=== PATIENT | male | born 1935 | race Caucasian/White ===

== ENCOUNTER → 2017-04-19 | Outpatient (CLI) | payer MEDICARE, OTHER ==
--- NOTE | 2017-04-23 09:08 | MR ---
EXAMINATION TYPE: MR MRCP DATE OF EXAM: 04/19/2017 COMPARISON: Outside MRI abdomen April 14, 2016. HISTORY: Pseudocyst of pancreas Standard multiplanar, multisequence MRI departmental protocol Multiplanar, multisequence images of the abdomen focusing on pancreatic and biliary system were acqui red. Thin and thick slice MRCP reconstructed imaging was performed. FINDINGS: PANCREAS/LIVER/BILIARY SYSTEM: Liver size is stable and felt within normal limits. No suspicious new solid or cystic lesions are identified. There is redemonstration of 6 mm thin-walled cyst anteriorly image 20 series 501 Gallbladder is unremarkable without intraluminal gallstones. There is no suspicio us intrahepatic or extrahepatic biliary dilatation. Extrahepatic bile duct is unchanged in size and a ppearance from outside study. Pancreas remains slightly atrophic in appearance with scattered thin-walled cysts along course of the head and body. Pancreatic duct is not suspiciously dilated and has tortuous course. Possible divisum morphology described on outside report is difficult to definitively confirm. Cysts overall are stabl e in size and morphology without greater than 2 cm lesion or new cystic lesions clearly identified. L esions are in close proximity to main pancreatic duct, communication is difficult as there is signifi cant artifact on sequences noted. OTHER: Lung bases are clear. There are a few simple appearing cysts scattered throughout visualized p ortion of right kidney. There is no suspicious biliary dilatation. Scattered colonic diverticula are identified. There is no abdominal ascites. There is no suspicious greater than 1 cm adenopathy. Visua lized osseous structures are intact. IMPRESSION: Suboptimal study, favor sidebranch IPMNs without suspicious enlargement or new suspicious cystic lesions identified. Continued annual surveillance recommended.
== END | disposition home or self-care (01) ==
LOC: RADMRIMAIN 09:45
PROVIDERS: ATTEND Internal Medicine Gastroenterology
DX: K86.3 Pseudocyst of pancreas (principal)
CPT/HCPCS: 74181

== ENCOUNTER → 2017-08-05 | Outpatient (CLI) | payer MEDICARE, OTHER ==
[2017-08-05 17:09] LABS: HCT 42.7 % (39.0-53.0); HGB 14.3 gm/dL (13.0-17.5); Lymphocytes % (A) 23 %; MCH 31.3 pg (25.0-35.0); MCHC 33.6 g/dL (31.0-37.0); MCV 93.4 fL (80.0-100.0); Mean Platelet Volume 7.4; Neutrophils % (A) 64 %; Platelet Count 175 k/uL (150-450); RBC 4.57 m/uL (4.30-5.90); RDW 12.6 % (11.5-15.5); WBC 6.7 k/uL (3.8-10.6)
[2017-08-05 17:10] LABS: Basophils % (A) 1 %; Eosinophils # (A) 0.2 k/uL (0-0.7); Eosinophils % (A) 3 %; Lymphocytes # (A) 1.5 k/uL (1.0-4.8); Monocytes # (A) 0.5 k/uL (0-1.0); Monocytes % (A) 7 %; Neutrophils # (A) 4.3 k/uL (1.3-7.7)
[2017-08-05 17:20] LABS: Partial Thromboplastin Time 24.6 sec (22.0-30.0); Prothrombin Time 9.9 sec (9.0-12.0)
[2017-08-05 17:39] LABS: T4, Free (Free Thyroxine) 1.1 ng/dL (0.78-2.19)
[2017-08-05 18:04] LABS: Erythrocyte Sedimentation Rate 7 mm/hr (0-15)
[2017-08-06 00:51] LABS: Folate, Serum >24.0 ng/mL
== END | disposition home or self-care (01) ==
LOC: LABWHC1 16:11
PROVIDERS: ATTEND Psychiatry & Neurology Neurology
DX: R41.3 Other amnesia (principal); M25.50 Pain in unspecified joint; R27.0 Ataxia, unspecified
CPT/HCPCS: 36415; 82607; 82728; 82746; 83540; 84207; 84439; 84443; 84446; 85025; 85610; 85652; 85730; 86038; 86618; 86780

== ENCOUNTER → 2017-09-16 | Outpatient (CLI) | payer MEDICARE, OTHER ==
--- NOTE | 2017-09-16 19:13 | CT ---
EXAMINATION TYPE: CT brain wo con DATE OF EXAM: 09/16/2017 HISTORY: HYDROCEPHALUS, degenerative disease of the nervous system. CT DLP: 960.8 mGycm. Automated Exposure Control for Dose Reduction was Utilized. TECHNIQUE: CT scan of the head is performed without contrast. COMPARISON: Prior MRI brain October 03, 2014. FINDINGS: There is no acute intracranial hemorrhage or midline shift identified. There is diffuse v entricular and sulcal prominence consistent with diffuse age-related cerebral atrophy. Ventricular si ze is felt stable from prior MRI. There is low-attenuation in the periventricular white matter consis tent with chronic small vessel ischemic change. The globes are intact bilaterally there is mild to m oderate mucosal thickening involving the ethmoid sinuses bilaterally. There is mild mucosal thickenin g involving the inferior right frontal sinus. There is some mucosal thickening in visualized portion of right maxillary sinus. IMPRESSION: No acute intracranial hemorrhage or midline shift. There is moderate diffuse age-relate d cerebral and cerebellar atrophy and mild to moderate chronic small vessel ischemic change noted. No significant change in ventricular size from prior MRI. Chronic paranasal sinus disease as noted alfonso galvan
== END | disposition home or self-care (01) ==
LOC: RADCTMAIN 17:23
DX: G31.9 Degenerative disease of nervous system, unspecified (principal); I67.82 Cerebral ischemia
CPT/HCPCS: 70450

== ENCOUNTER → 2018-01-26 | Outpatient (CLI) | payer MEDICARE, OTHER ==
--- NOTE | 2018-01-26 13:27 | CT ---
EXAMINATION TYPE: CT brain wo con DATE OF EXAM: 01/26/2018 HISTORY: Normal pressure hydrocephalus CT DLP: 1159 mGycm. Automated Exposure Control for Dose Reduction was Utilized. TECHNIQUE: CT scan of the head is performed without contrast. COMPARISON: CT brain September 16, 2017. FINDINGS: There is no acute intracranial hemorrhage or midline shift identified. There is new right parietal nasir hole with overlying metallic plate axial image 34. Just inferior to this there is righ t-sided nasir hole with [employer] shunt catheter terminating in the region of temporal horn right lateral herb tricle. Ventricular size is stable from prior exam. There is diffuse ventricular and sulcal prominenc e redemonstrated. Some areas of low-attenuation in the periventricular and deep white matter remain p resent. Moderate mucosal thickening of bilateral ethmoid sinuses is redemonstrated slightly improved from prior. There is dependent opacification in the right maxillary sinus with bony changes involving right lateral wall that is thickened. The globes are intact bilaterally. IMPRESSION: No acute intracranial hemorrhage or midline shift. Right-sided [employer] shunt catheter with stable ventricle size. Background moderate diffuse cerebral atroph y and mild chronic small vessel ischemic change is redemonstrated. Possible acute on chronic right ma xillary sinus disease. Correlate clinically.
== END | disposition home or self-care (01) ==
LOC: RADCTMAIN 12:45
DX: G91.2 (Idiopathic) normal pressure hydrocephalus (principal); G31.9 Degenerative disease of nervous system, unspecified; I67.82 Cerebral ischemia; Z98.2 Presence of cerebrospinal fluid drainage device
CPT/HCPCS: 70450

== ENCOUNTER → 2018-04-21 | Outpatient (CLI) | payer MEDICARE, OTHER ==
[2018-04-22 02:36] LABS: T4, Free (Free Thyroxine) 1.2 ng/dL (0.80-1.80)
== END | disposition home or self-care (01) ==
LOC: LABWHC1 15:44
PROVIDERS: ATTEND Psychiatry & Neurology Psychiatry
DX: E03.9 Hypothyroidism, unspecified (principal)
CPT/HCPCS: 36415; 84439; 84443

== ENCOUNTER → 2018-05-11 | Outpatient (CLI) | payer MEDICARE, OTHER ==
--- NOTE | 2018-05-11 14:41 | CT ---
EXAMINATION TYPE: CT brain wo con DATE OF EXAM: 05/11/2018 COMPARISON: 01/26/2018 HISTORY: normal pressure hydrocephalus CT DLP: 1156 mGycm Automated exposure control for dose reduction was used. TECHNIQUE: CT scan of the head is performed without contrast. FINDINGS: There is redemonstration of a right posterior parietal approach intraventricular shunt cat heter terminating near the right temporal horn of the lateral ventricle. The ventricular size when me asured at a similar location are unchanged in size. No transependymal edema is seen. Foramen of Mon[place] e remains dilated. There is no acute intracranial hemorrhage or midline shift identified. There is lo w-attenuation in the periventricular white matter consistent with chronic small vessel ischemic bennett e. There is chronic moderate mucosal thickening and mucoperiosteal thickening of the right maxillary sin us and moderate mucosal thickening of the ethmoid sinuses with mild mucosal thickening of the sphenoi d sinuses. Frontal sinuses and mastoid air cells are well aerated. IMPRESSION: 1. Stable ventricular size in comparison to the prior of 01/26/2018 status post right posterior pariet al approach intraventricular shunt. 2. No acute intracranial process. 3. Acute and chronic paranasal sinus disease.
== END | disposition home or self-care (01) ==
LOC: RADCTMAIN 13:13
DX: G91.2 (Idiopathic) normal pressure hydrocephalus (principal)
CPT/HCPCS: 70450

== ENCOUNTER → 2018-06-10 | Outpatient (CLI) | payer MEDICARE, OTHER ==
--- NOTE | 2018-06-11 08:40 | MR ---
EXAMINATION TYPE: MR pancreas / mrcp wo/w con DATE OF EXAM: 06/10/2018 COMPARISON: MRCP April 19, 2017. HISTORY: Acute pancreatitis/cyst CONTRAST: Standard multiplanar, multisequence MRI departmental protocol utilizing 9 mL intravenous Gadavist bryanna olinium contrast. Thin and thick slice MRCP imaging is performed on MRI scanner. FINDINGS: LIVER/GB/PANCREAS/BILIARY SYSTEM: Gallbladder is felt within normal limits. Liver is normal in size. There are few thin walled simple appearing subcentimeter cysts in the right hepatic lobe. There is no suspicious intrahepatic or extrahepatic biliary dilatation. Pancreas is normal in size. There are multiple thin-walled cysts and cystic lesions throughout the pa ncreas, all measuring subcentimeter in size, for reference one of the larger lesions is 9 x 7 mm in u ncinate process axial image 22 series 701. MRCP imaging appears to show ductal communication to a mihaela e branch to this largest lesion. Main pancreatic duct is not dilated best difficult to distinctly vis ualize., Some ductal communication is felt present with at least some of the additional cystic lesion s throughout the body. No suspicious enhancing solid masses or suspicious solid nodularity is present . Comparison with prior MRI shows this largest lesion uncinate process is increased in size from prio r study axial image 13 where it measured 7 x 5 mm. OTHER: Lung bases are clear. The spleen and both adrenal glands are normal in size. There are few thi n-walled cysts scattered throughout the right kidney including a large exophytic thin-walled cyst low er pole level right kidney which is stable. No suspicious bowel dilatation is seen. No abdominal asci robert is noted. Osseous structures are intact. Tortuous course to the descending thoracic aorta is rede monstrated. IMPRESSION: Multiple thin-walled cysts and cystic lesions scattered throughout the pancreas, some cou ld reflect pseudocysts however some appear to have ductal communication, sidebranch IPMN's are in dif ferential. Largest lesion uncinate process is increased in size from prior MRI. At minimum annual irvin veillance is advised.
== END ==
LOC: RADMRIMAIN 15:27
PROVIDERS: ATTEND Internal Medicine Gastroenterology
DX: K86.2 Cyst of pancreas (principal); Z13.89 Encounter for screening for other disorder
CPT/HCPCS: 82565; 84520; 74183; 36415; A9585

== ENCOUNTER → 2018-12-08 | Outpatient (CLI) | payer MEDICARE, OTHER ==
--- NOTE | 2018-12-09 19:39 | MR ---
EXAMINATION TYPE: MR pancreas / MRCP wo/w con DATE OF EXAM: 12/08/2018 COMPARISON: 06/10/2018 and 04/19/2017 HISTORY: 83-year-old male follow-up cyst of pancreas Technique: Multiplanar, multisequence images of the abdomen were obtained before and after administra tion of 9 mL intravenous Gadavist gadolinium contrast. Additional highly T2 weighted sequences of th e pancreaticobiliary system were obtained or MRCP. 3-D reconstructions were generated. FINDINGS: Heart upper limits of normal in size. No pleural effusion. Tiny hiatal hernia. Liver normal size. Mild decrease in signal on out of phase T1-weighted sequence suggests a degree of underlying fatty infiltration. Tiny 6 mm anterior right liver lobe cyst redemonstrated. Otherwise, no focal liver lesion or biliary ductal dilatation. Portal venous system is patent. Numerous thin-walled pancreatic cystic lesions are redemonstrated. Postcontrast sequences show no qing picious nodular or masslike enhancement. The coronal and MRCP sequences are utilized for comparison p urposes. As noted previously, some of these may communicate with the main pancreatic duct. The larges t is in the pancreatic tail region measuring 1.5 cm. The previously mentioned pancreatic head cyst me asures 1.2 cm, unchanged from 06/10/2018 but increased in size from 04/19/2017 where it measured only 8 mm. All of these cystic areas are relatively unchanged from 06/10/2018. Gallbladder, and spleen appear within normal limits. Mild diffuse thickening of the adrenal glands without discrete nodularity. 4.9 cm cyst lower pole right kidney is unchanged. Additional 1.9 cm parapelvic cyst central lower shalom e left kidney is unchanged. No upper abdominal lymphadenopathy, ascites fluid, or gross bowel abnormality seen. Scattered left-si ded colonic diverticulosis is noted, greatest in the sigmoid colon. IMPRESSION: 1. Numerous thin-walled pancreatic cystic lesions redemonstrated, some of which seem to communicate w ith the main pancreatic duct. Nonspecific cysts including IPMN's remain in the differential. The larg est measures 1.5 cm. The particular cyst within the pancreatic head measures 1.2 cm. These remain unc hanged for 6 months. Again, we note that some of these have slightly increased in size from 7. No suspicious nodular or masslike enhancement. Annual surveillance can be performed. 2. At least mild hepatic steatosis, tiny hiatal hernia, and left-sided colonic diverticulosis.
== END | disposition home or self-care (01) ==
LOC: RADMRIMAIN 14:49
PROVIDERS: ATTEND Internal Medicine Gastroenterology
DX: K86.2 Cyst of pancreas (principal); K76.0 Fatty (change of) liver, not elsewhere classified; K44.9 Diaphragmatic hernia without obstruction or gangrene; K57.30 Diverticulosis of large intestine without perforation or abscess without bleeding
CPT/HCPCS: 74183; A9585

== ENCOUNTER → 2019-03-13 | Outpatient (CLI) | payer MEDICARE, OTHER ==
[2019-03-13 11:29] LABS: Basophils # (A) 0.1 k/uL (0-0.2); Basophils % (A) 1 %; Eosinophils # (A) 0.4 k/uL (0-0.7); Eosinophils % (A) 5 %; HCT 45.4 % (39.0-53.0); HGB 15.3 gm/dL (13.0-17.5); Lymphocytes # (A) 1.6 k/uL (1.0-4.8); Lymphocytes % (A) 20 %; MCH 32.8 pg (25.0-35.0); MCHC 33.6 g/dL (31.0-37.0); MCV 97.7 fL (80.0-100.0); Monocytes # (A) 0.5 k/uL (0-1.0); Monocytes % (A) 7 %; Neutrophils % (A) 64 %; Platelet Count 206 k/uL (150-450); RBC 4.65 m/uL (4.30-5.90); RDW 12.5 % (11.5-15.5); WBC 7.8 k/uL (3.8-10.6)
[2019-03-13 17:37] LABS: African American GFR (CKD) 72.1 (60.0-200.0); Albumin 4.5 g/dL (3.80-4.90); Albumin/Globulin Ratio 2.14 (1.60-3.17); Anion Gap 7.8 mmol/L (4.00-12.00); BUN/Creat Ratio 26.36 Ratio (12.00-20.00); Calcium 9.6 mg/dL (8.7-10.3); Carbon Dioxide 26.2 mmol/L (21.6-31.8); Chol/HDL Ratio 2.96; Globulin 2.1 g/dL (1.6-3.3); LDL Cholesterol,Calculated 65.8 mg/dL (0.0-131.0); Potassium 4.5 mmol/L (3.5-5.5); Total Bilirubin 0.5 mg/dL (0.3-1.2); Total Protein 6.6 g/dL (6.2-8.2); VLDL Calculation 32.2 mg/dL (5.00-40.00)
== END | disposition home or self-care (01) ==
LOC: LABWHC1 10:22
PROVIDERS: ATTEND Internal Medicine Cardiovascular Disease
DX: E78.5 Hyperlipidemia, unspecified (principal); I25.10 Atherosclerotic heart disease of native coronary artery without angina pectoris
CPT/HCPCS: 36415; 80053; 80061; 85025

== ENCOUNTER → 2019-11-24 | Outpatient (CLI) | payer MEDICARE, OTHER ==
--- NOTE | 2019-11-24 15:28 | CT ---
EXAMINATION TYPE: CT brain wo con DATE OF EXAM: 11/24/2019 COMPARISON: May 11, 2018 HISTORY: Shunt failure, normal pressure. changes in mentation. CT DLP: 1194.[address] of the brain was performed. Again noted is posterior right parietal shunt with its distal tip unchanged in position and located a djacent to the right temporal horn of the lateral ventricle. Ventricular size is stable relative to t he prior study. Persistent dilatation of the foramen of [place]. The ventricles, basal cisterns and sulci overlying the cerebral convexities demonstrate moderate enla rgement. There is no evidence for intracranial hemorrhage or sulcal effacement. There is decreased attenuation about the periventricular white matter and deep white matter of both c erebral hemispheres, compatible with chronic small vessel ischemia. Differential diagnosis does inclu de demyelination. No mass effects are seen.No midline shift. Osseous calvarium is intact. Chronic paranasal sinusitis noted. If symptoms persist consider MRI. IMPRESSION: 1. Overall no change in shunt catheter location and degree of ventricular prominence.
== END | disposition home or self-care (01) ==
LOC: RADCTMAIN 14:49
PROVIDERS: ATTEND Psychiatry & Neurology Neurology
DX: G91.2 (Idiopathic) normal pressure hydrocephalus (principal); T85.01XA Breakdown (mechanical) of ventricular intracranial (communicating) shunt, initial encounter
CPT/HCPCS: 70450

== ENCOUNTER → 2020-03-29 | Outpatient (CLI) | payer MEDICARE, OTHER ==
[2020-03-29 12:03] LABS: Basophils # (A) 0.1 k/uL (0-0.2); Basophils % (A) 1 %; Eosinophils # (A) 0.3 k/uL (0-0.7); Eosinophils % (A) 4 %; HCT 46.1 % (39.0-53.0); HGB 15.7 gm/dL (13.0-17.5); Lymphocytes # (A) 1.4 k/uL (1.0-4.8); Lymphocytes % (A) 20 %; MCH 33.5 pg (25.0-35.0); MCHC 33.9 g/dL (31.0-37.0); MCV 98.7 fL (80.0-100.0); Mean Platelet Volume 7.7; Monocytes # (A) 0.4 k/uL (0-1.0); Monocytes % (A) 6 %; Neutrophils # (A) 4.7 k/uL (1.3-7.7); Neutrophils % (A) 67 %; Platelet Count 232 k/uL (150-450); RBC 4.67 m/uL (4.30-5.90)
[2020-03-29 19:51] LABS: African American GFR (CKD) 64.4 (60.0-200.0); Albumin 4.7 g/dL (3.80-4.90); Albumin/Globulin Ratio 1.96 (1.60-3.17); Anion Gap 9.3 mmol/L (4.00-12.00); BUN/Creat Ratio 21.67 Ratio (12.00-20.00); Carbon Dioxide 27.7 mmol/L (21.6-31.8); Chol/HDL Ratio 3.32; Globulin 2.4 g/dL (1.6-3.3); LDL Cholesterol,Calculated 78.8 mg/dL (0.0-131.0); Non-African American GFR(CKD) 55.6 (60.0-200.0); Potassium 4.4 mmol/L (3.5-5.5); Total Bilirubin 0.7 mg/dL (0.3-1.2); Total Protein 7.1 g/dL (6.2-8.2); VLDL Calculation 30.2 mg/dL (5.00-40.00)
[2020-03-29 19:59] LABS: PSA Annual Screen 0.5 ng/mL (0.0-4.0); T4, Free (Free Thyroxine) 1.2 ng/dL (0.80-1.80)
== END | disposition home or self-care (01) ==
LOC: LABWHC1 10:44
PROVIDERS: ATTEND Internal Medicine
DX: Z00.00 Encounter for general adult medical examination without abnormal findings (principal); Z12.5 Encounter for screening for malignant neoplasm of prostate
CPT/HCPCS: 84439; 80061; 80053; 84443; 85025; 36415; G0103

== ENCOUNTER 2021-10-16 21:02 | Inpatient (IN) | payer MEDICARE, OTHER ==
[2021-10-16] MEDS ORDERED: SODIUM CHLORIDE 0.9% 500 ML 500 ML IV STA (21:16)
[2021-10-16] MEDS ORDERED: ONDANSETRON 4 MG/2 ML VIAL IVP STA (21:16)
[2021-10-16] MEDS ORDERED: SODIUM CHLORIDE 0.9% 1,000 ML IV STA (21:16)
[2021-10-16] MEDS ORDERED: MORPHINE SULFATE 4 MG/ML SYRINGE IV STA (21:16)
[2021-10-16 21:59] LABS: Basophils # (A) 0.1 k/uL (0-0.2); Basophils % (A) 1 %; Eosinophils # (A) 0.1 k/uL (0-0.7); Eosinophils % (A) 1 %; HCT 51.2 % (39.0-53.0); HGB 16.5 gm/dL (13.0-17.5); Lymphocytes # (A) 0.8 k/uL (1.0-4.8); Lymphocytes % (A) 6 %; MCH 31.5 pg (25.0-35.0); MCHC 32.2 g/dL (31.0-37.0); MCV 97.7 fL (80.0-100.0); Mean Platelet Volume 7.7; Monocytes # (A) 0.8 k/uL (0-1.0); Monocytes % (A) 6 %; Neutrophils # (A) 11.7 k/uL (1.3-7.7); Neutrophils % (A) 86 %; Platelet Count 217 k/uL (150-450); RBC 5.24 m/uL (4.30-5.90); RDW 12.1 % (11.5-15.5); WBC 13.6 k/uL (3.8-10.6)
[2021-10-16 22:08] LABS: INR 0.9 (<1.2); Partial Thromboplastin Time 23.8 sec (22.0-30.0); Prothrombin Time 10.1 sec (9.0-12.0)
[2021-10-16 22:10] LABS: ALT 44 U/L (4-49); AST 30 U/L (17-59); African American GFR (CKD) >90 (>60 ml/min/1.73 sqM); Albumin 4.2 g/dL (3.5-5.0); Alkaline Phosphatase 110 U/L (38-126); Anion Gap 9 mmol/L; Blood Urea Nitrogen 17 mg/dL (9-20); Calcium 9.2 mg/dL (8.4-10.2); Carbon Dioxide 23 mmol/L (22-30); Chloride 105 mmol/L (98-107); Glucose 169 mg/dL (74-99); Lipase 41 U/L (23-300); Non-African American GFR(CKD) 80 (>60 ml/min/1.73 sqM); Phosphorus 3.4 mg/dL (2.5-4.5); Potassium 3.9 mmol/L (3.5-5.1); Sodium 137 mmol/L (137-145); Total Protein 7.1 g/dL (6.3-8.2)
--- NOTE | 2021-10-16 22:14 | ED ---
Nausea/Vomiting/Diarrhea HPI - General Chief complaint: Nausea/Vomiting/Diarrhea Stated complaint: nausea, vomiting, dehydration, abd pain Time Seen by Provider: 10/16/21 21:15 Source: EMS, RN notes reviewed, old records reviewed, Caregiver Mode of arrival: EMS Limitations: altered mental status - History of Present Illness Initial comments: This is an 86-year-old male for severe weakness positive nausea vomiting decreased appetite with activity level throughout the day today. Family also states he had multiple episodes of vomiting history of dental pain and chronic pancreatitis. Patient has no known sick contacts travel history, patient is acting appropriately yesterday. No recent medication changes. Patient is a poor historian history obtained from family who is at bedside who state patient's pain no weak compared to his normal baseline MD complaint: nausea, vomiting, abdominal pain -: hour(s) Description of Vomiting: food contents Associated Abdominal Pain: Yes Location: diffuse, periumbilical Radiation: none Severity: moderate Severity scale (1-10): 7 Quality: sharp Consistency: intermittent Improves with: none Worsens with: none Context: possible food poisoning Associated Symptoms: loss of appetite, nausea/vomiting, weakness - Related Data Home Medications Medication Instructions Recorded Confirmed Aspirin 81 mg PO DAILY 03/19/15 10/16/21 Metoprolol Succinate [Toprol XL] 12.5 mg PO DAILY 03/19/15 10/16/21 Pantoprazole Sodium [Protonix] 40 mg PO HS 03/19/15 10/16/21 Rosuvastatin Calcium [Crestor] 10 mg PO HS 07/02/15 10/16/21 Losartan Potassium [Cozaar] 25 mg PO DAILY 10/16/21 10/16/21 Allergies Allergy/AdvReac Type Severity Reaction Status Date / Time No Known Allergies Allergy Verified 10/16/21 22:51 Review of Systems ROS Statement: Those systems with pertinent positive or pertinent negative responses have been documented in the HPI. ROS Other: All systems not noted in ROS Statement are negative. Past Medical History Past Medical History: Atrial Fibrillation, Cancer, Dementia, GERD/Reflux, Hyperlipidemia, Hypertension, Sleep Apnea/CPAP/BIPAP Additional Past Medical History / Comment(s): USES C-PAP MACHINE, HX OF PANCREATITIS, SKIN CANCER, TINNITIS. History of Any Multi-Drug Resistant Organisms: None Reported Past Surgical History: Breast Surgery, Heart Catheterization, Joint Replacement Additional Past Surgical History / Comment(s): LUMP REMOVED RT BREAST, RT FELIPA ULDER REPLACEMENT,RT TOTAL HIP X 2, RIGHT TOTAL KNEE, RIGHT CARPAL TUNNEL. Past Anesthesia/Blood Transfusion Reactions: No Reported Reaction Past Psychological History: Depression Smoking Status: Never smoker Past Alcohol Use History: Occasional Past Drug Use History: None Reported - Past Family History Mother Family Medical History: CVA/TIA Additional Family Medical History / Comment(s): 100 YR OLD Father Family Medical History: CVA/TIA Additional Family Medical History / Comment(s): AT AGE 68 Brother(s) Family Medical History: AFIB, AICD/Pacemaker, Cancer, Coronary Artery Disease (CAD), Hypertension Additional Family Medical History / Comment(s): HIATAL HERNIA, PROSTATE CA General Exam General appearance: alert, in no apparent distress Head exam: Present: atraumatic, normocephalic, normal inspection Eye exam: Present: normal appearance, PERRL, EOMI. Absent: scleral icterus, conjunctival injection, periorbital swelling ENT exam: Present: normal exam, mucous membranes moist Neck exam: Present: normal inspection. Absent: tenderness, meningismus, lymphadenopathy Respiratory exam: Present: normal lung sounds bilaterally. Absent: respiratory distress, wheezes, rales, rhonchi, stridor Cardiovascular Exam: Present: regular rate, normal rhythm, normal heart sounds. Absent: systolic murmur, diastolic murmur, rubs, gallop, clicks GI/Abdominal exam: Present: soft, normal bowel sounds. Absent: distended, tenderness, guarding, rebound, rigid Extremities exam: Present: normal inspection, full ROM, normal capillary refill. Absent: tenderness, pedal edema, joint swelling, calf tenderness Back exam: Present: normal inspection Neurological exam: Present: alert, oriented X3, CN II-XII intact Psychiatric exam: Present: normal affect, normal mood Skin exam: Present: warm, dry, intact, normal color. Absent: rash Course Vital Signs 10/16/21 21:23 Temperature 98.4 F Pulse Rate 70 Respiratory 19 Rate Blood Pressure 126/84 O2 Sat by Pulse 95 Oximetry - Reevaluation(s) Reevaluation #1: 10/17/21 02:00 Medical record is reviewed Reevaluation #2: 10/17/21 02:00 Patient is informed of results here in the ER and questions are answered Reevaluation #3: 10/17/21 02:00 Patient has no active nausea vomiting here in the ER but because of vomiting and infection patient will be admitted for IV antibiotics - Consultations Consultation #1: Spoke with Dr. Nelson who agrees to admit this patient Medical Decision Making - Medical Decision Making 86 male presents today for evaluation of weakness and nausea vomiting he does have positive urinary tract infection significant. Patient be admitted for symptomatic treatment - Lab Data Result diagrams: 10/16/21 21:32 10/16/21 21:32 Lab Results 10/16/21 10/16/21 10/16/21 Range/Units 21:32 21:32 21:32 WBC 13.6 H (3.8-10.6) k/uL RBC 5.24 (4.30-5.90) m/uL Hgb 16.5 (13.0-17.5) gm/dL Hct 51.2 (39.0-53.0) % MCV 97.7 (80.0-100.0) fL MCH 31.5 (25.0-35.0) pg MCHC 32.2 (31.0-37.0) g/dL RDW 12.1 (11.5-15.5) % Plt Count 217 (150-450) k/uL MPV 7.7 Neutrophils % 86 % Lymphocytes % 6 % Monocytes % 6 % Eosinophils % 1 % Basophils % 1 % Neutrophils # 11.7 H (1.3-7.7) k/uL Lymphocytes # 0.8 L (1.0-4.8) k/uL Monocytes # 0.8 (0-1.0) k/uL Eosinophils # 0.1 (0-0.7) k/uL Basophils # 0.1 (0-0.2) k/uL PT 10.1 (9.0-12.0) sec INR 0.9 (<1.2) APTT 23.8 (22.0-30.0) sec Sodium 137 (137-145) mmol/L Potassium 3.9 (3.5-5.1) mmol/L Chloride 105 (98-107) mmol/L Carbon Dioxide 23 (22-30) mmol/L Anion Gap 9 mmol/L BUN 17 (9-20) mg/dL Creatinine 0.83 (0.66-1.25) mg/dL Est GFR (CKD-EPI)AfAm >90 (>60 ml/min/1.73 sqM) Est GFR (CKD-EPI)NonAf 80 (>60 ml/min/1.73 sqM) Glucose 169 H (74-99) mg/dL Lactic Ac Sepsis Rflx Plasma Lactic Acid Sujit (0.7-2.0) mmol/L Calcium 9.2 (8.4-10.2) mg/dL Phosphorus 3.4 (2.5-4.5) mg/dL Magnesium 2.0 (1.6-2.3) mg/dL Total Bilirubin 1.0 (0.2-1.3) mg/dL AST 30 (17-59) U/L ALT 44 (4-49) U/L Alkaline Phosphatase 110 (38-126) U/L Troponin I (0.000-0.034) ng/mL NT-Pro-B Natriuret Pep pg/mL Total Protein 7.1 (6.3-8.2) g/dL Albumin 4.2 (3.5-5.0) g/dL Lipase 41 (23-300) U/L Urine Color Urine Appearance (Clear) Urine pH (5.0-8.0) Ur Specific [place] (1.001-1.035) Urine Protein (Negative) Urine Glucose (UA) (Negative) Urine Ketones (Negative) Urine Blood (Negative) Urine Nitrite (Negative) Urine Bilirubin (Negative) Urine Urobilinogen (<2.0) mg/dL Ur Leukocyte Esterase (Negative) Urine RBC (0-5) /hpf Urine WBC (0-5) /hpf Urine WBC Clumps (None) /hpf Ur Squamous Epith Cells (0-4) /hpf Urine Bacteria (None) /hpf Urine Mucus (None) /hpf 10/16/21 10/16/21 10/16/21 Range/Units 21:32 21:32 21:32 WBC (3.8-10.6) k/uL RBC (4.30-5.90) m/uL Hgb (13.0-17.5) gm/dL Hct (39.0-53.0) % MCV (80.0-100.0) fL MCH (25.0-35.0) pg MCHC (31.0-37.0) g/dL RDW (11.5-15.5) % Plt Count (150-450) k/uL MPV Neutrophils % % Lymphocytes % % Monocytes % % Eosinophils % % Basophils % % Neutrophils # (1.3-7.7) k/uL Lymphocytes # (1.0-4.8) k/uL Monocytes # (0-1.0) k/uL Eosinophils # (0-0.7) k/uL Basophils # (0-0.2) k/uL PT (9.0-12.0) sec INR (<1.2) APTT (22.0-30.0) sec Sodium (137-145) mmol/L Potassium (3.5-5.1) mmol/L Chloride (98-107) mmol/L Carbon Dioxide (22-30) mmol/L Anion Gap mmol/L BUN (9-20) mg/dL Creatinine (0.66-1.25) mg/dL Est GFR (CKD-EPI)AfAm (>60 ml/min/1.73 sqM) Est GFR (CKD-EPI)NonAf (>60 ml/min/1.73 sqM) Glucose (74-99) mg/dL Lactic Ac Sepsis Rflx Plasma Lactic Acid Sujit 2.4 H* (0.7-2.0) mmol/L Calcium (8.4-10.2) mg/dL Phosphorus (2.5-4.5) mg/dL Magnesium (1.6-2.3) mg/dL Total Bilirubin (0.2-1.3) mg/dL AST (17-59) U/L ALT (4-49) U/L Alkaline Phosphatase (38-126) U/L Troponin I 0.049 H* (0.000-0.034) ng/mL NT-Pro-B Natriuret Pep 471 pg/mL Total Protein (6.3-8.2) g/dL Albumin (3.5-5.0) g/dL Lipase (23-300) U/L Urine Color Urine Appearance (Clear) Urine pH (5.0-8.0) Ur Specific [place] (1.001-1.035) Urine Protein (Negative) Urine Glucose (UA) (Negative) Urine Ketones (Negative) Urine Blood (Negative) Urine Nitrite (Negative) Urine Bilirubin (Negative) Urine Urobilinogen (<2.0) mg/dL Ur Leukocyte Esterase (Negative) Urine RBC (0-5) /hpf Urine WBC (0-5) /hpf Urine WBC Clumps (None) /hpf Ur Squamous Epith Cells (0-4) /hpf Urine Bacteria (None) /hpf Urine Mucus (None) /hpf 10/16/21 10/17/21 10/17/21 Range/Units 22:10 00:52 01:11 WBC (3.8-10.6) k/uL RBC (4.30-5.90) m/uL Hgb (13.0-17.5) gm/dL Hct (39.0-53.0) % MCV (80.0-100.0) fL MCH (25.0-35.0) pg MCHC (31.0-37.0) g/dL RDW (11.5-15.5) % Plt Count (150-450) k/uL MPV Neutrophils % % Lymphocytes % % Monocytes % % Eosinophils % % Basophils % % Neutrophils # (1.3-7.7) k/uL Lymphocytes # (1.0-4.8) k/uL Monocytes # (0-1.0) k/uL Eosinophils # (0-0.7) k/uL Basophils # (0-0.2) k/uL PT (9.0-12.0) sec INR (<1.2) APTT (22.0-30.0) sec Sodium (137-145) mmol/L Potassium (3.5-5.1) mmol/L Chloride (98-107) mmol/L Carbon Dioxide (22-30) mmol/L Anion Gap mmol/L BUN (9-20) mg/dL Creatinine (0.66-1.25) mg/dL Est GFR (CKD-EPI)AfAm (>60 ml/min/1.73 sqM) Est GFR (CKD-EPI)NonAf (>60 ml/min/1.73 sqM) Glucose (74-99) mg/dL Lactic Ac Sepsis Rflx Y Plasma Lactic Acid Sujit 1.5 (0.7-2.0) mmol/L Calcium (8.4-10.2) mg/dL Phosphorus (2.5-4.5) mg/dL Magnesium (1.6-2.3) mg/dL Total Bilirubin (0.2-1.3) mg/dL AST (17-59) U/L ALT (4-49) U/L Alkaline Phosphatase (38-126) U/L Troponin I (0.000-0.034) ng/mL NT-Pro-B Natriuret Pep pg/mL Total Protein (6.3-8.2) g/dL Albumin (3.5-5.0) g/dL Lipase (23-300) U/L Urine Color Yellow Urine Appearance Clear (Clear) Urine pH 6.0 (5.0-8.0) Ur Specific [place] >1.050 H (1.001-1.035) Urine Protein 1+ H (Negative) Urine Glucose (UA) Negative (Negative) Urine Ketones Trace H (Negative) Urine Blood Small H (Negative) Urine Nitrite Positive (Negative) Urine Bilirubin Negative (Negative) Urine Urobilinogen 2.0 (<2.0) mg/dL Ur Leukocyte Esterase Large H (Negative) Urine RBC 7 H (0-5) /hpf Urine WBC 145 H (0-5) /hpf Urine WBC Clumps Rare H (None) /hpf Ur Squamous Epith Cells <1 (0-4) /hpf Urine Bacteria Rare H (None) /hpf Urine Mucus Moderate H (None) /hpf - EKG Data -: EKG Interpreted by Me (EKG sinus rhythm rate of 69 ID 251 QRS 77 QTc 447) - Radiology Data Radiology results: report reviewed (CT abdomen and pelvis negative for acute disease), image reviewed Disposition Clinical Impression: Dehydration, Gastroenteritis, Nausea & vomiting, UTI (urinary tract infection), Weakness Disposition: ADMITTED IP TO THIS HOSP Condition: Fair Is patient prescribed a controlled substance at d/c from ED?: No Referrals: Pauline Summers MD [Primary Care Provider] - 1-2 days Time of Disposition: 02:10
--- NOTE | 2021-10-17 00:05 | CT ---
EXAMINATION TYPE: CT abdomen pelvis w con DATE OF EXAM: 10/16/2021 COMPARISON: None HISTORY: pain CT DLP: 1287.3 mGycm Automated exposure control for dose reduction was used. CONTRAST: Performed with IV Contrast, patient injected with 100ml mL of Isovue 300. Images obtained from the diaphragm to the floor of the pelvis with the IV contrast. There is some interstitial infiltrate or atelectasis at the lung bases. Heart is enlarged. No pericar dial effusion. No pleural effusion. Liver spleen stomach appear intact. There are numerous calcifications throughout the pancreas. Gallbl adder appears intact. Bile ducts are not dilated. Pancreatic duct is not dilated. There is no adrenal mass. Kidneys of normal size. No hydronephrosis. Ureters are not dilated. There i s 1 mm calculus lower pole left kidney. There is 4.4 cm cortical cyst anterior right kidney. There is ventricular peritoneal shunt catheter noted. Catheter tip is in the right mid abdomen. The bladder distends smoothly. There is right hip prosthesis. There is hypertrophic osteoarthritis in the left hip joint. There is hip joint space narrowing. Sacroiliac joints are intact. The lumbar vertebra have normal alignment. No compression fracture. There is vacuum disc at L5-S1. Th ere is rudimentary disc at S1-S2. There is no mesenteric edema. No ascites or free air. No bowel obstruction. There are multiple sigmoi d diverticula. No diverticulitis. Appendix is posterior and appears normal. IMPRESSION: Interstitial infiltrates and subsegmental atelectasis at the lung bases. There is probably pulmonary fibrosis. Cardiomegaly. Calcification consistent with chronic pancreatitis. Sigmoid diverticulosis without diverticulitis. Normal appendix. 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
[2021-10-17 01:19] LABS: Appearance,Urine Clear (Clear); Bacteria,Urine Rare /hpf; Bilirubin,Urine Negative (Negative); Blood,Urine Small (Negative); Color,Urine Yellow; Glucose,Urine (UA) Negative (Negative); Ketones,Urine Trace (Negative); Leukocyte Esterase,Urine Large (Negative); Mucus,Urine Moderate /hpf; Nitrite,Urine Positive (Negative); Protein,Urine 1+ (Negative); RBC,Urine 7 /hpf (0-5); Squamous Epithelial Cell,Urine <1 /hpf (0-4); WBC,Urine 145 /hpf (0-5)
[2021-10-17 01:40] LABS: Specific Gravity,Urine >1.050 (1.001-1.035)
[2021-10-17] MEDS ORDERED: MORPHINE SULFATE 4 MG/ML SYRINGE IV PRN (05:49)
[2021-10-17] MEDS ORDERED: ONDANSETRON 4 MG/2 ML VIAL IVP PRN (05:49)
[2021-10-17] MEDS ORDERED: LORazepam 2 MG/ML INJ IV PRN (05:49)
[2021-10-17] MEDS ORDERED: NALOXONE 0.4 MG/ML 1 ML VIAL IV PRN (05:49)
[2021-10-17] MEDS: PANTOPRAZOLE 40 MG/10 ML VIAL IV SCH (08:23)
[2021-10-17] MEDS: METOPROLOL SUCCINATE (ER) 25 MG TAB.ER.24H PO SCH (08:23)
[2021-10-17] MEDS: LOSARTAN 25 MG TAB PO SCH (08:23)
[2021-10-17] MEDS: ASPIRIN 81 MG PO SCH (08:24)
[2021-10-17] MEDS: SODIUM CHLORIDE 0.9% 1,000 ML IV SCH ×2 (08:26→17:57)
[2021-10-17 12:28] LABS: Basophils # (A) 0.1 k/uL (0-0.2); Basophils % (A) 0 %; Eosinophils # (A) 0.1 k/uL (0-0.7); Eosinophils % (A) 1 %; HCT 45.4 % (39.0-53.0); HGB 14.6 gm/dL (13.0-17.5); Lymphocytes # (A) 1.2 k/uL (1.0-4.8); Lymphocytes % (A) 8 %; MCH 32.2 pg (25.0-35.0); MCHC 32.2 g/dL (31.0-37.0); MCV 100.1 fL (80.0-100.0); Mean Platelet Volume 7.8; Monocytes # (A) 0.9 k/uL (0-1.0); Monocytes % (A) 6 %; Neutrophils # (A) 12.1 k/uL (1.3-7.7); Neutrophils % (A) 83 %; Platelet Count 197 k/uL (150-450); RBC 4.54 m/uL (4.30-5.90); RDW 12.3 % (11.5-15.5); WBC 14.5 k/uL (3.8-10.6)
[2021-10-17 12:57] LABS: African American GFR (CKD) >90 (>60 ml/min/1.73 sqM); Anion Gap 9 mmol/L; Blood Urea Nitrogen 17 mg/dL (9-20); Calcium 8.6 mg/dL (8.4-10.2); Carbon Dioxide 22 mmol/L (22-30); Chloride 107 mmol/L (98-107); Glucose 131 mg/dL (74-99); Non-African American GFR(CKD) 79 (>60 ml/min/1.73 sqM); Sodium 138 mmol/L (137-145)
[2021-10-17] MEDS ORDERED: ACETAMINOPHEN TAB 325 MG TAB PO PRN (15:43)
[2021-10-17] MEDS ORDERED: QUEtiapine 25 MG TAB PO PRN (19:41)
--- NOTE | 2021-10-17 19:46 | P.HPIM ---
History of Present Illness H&P Date: 10/17/21 This is an 86-year-old male who was recently brought to the ER after becoming weak and having nausea, vomiting, and diarrhea with confusion. Family reports that he is normally alert and oriented x3 and has not been acting himself. Patient diet has drastically reduced and oral intake is poor over the last day or two. Patient has history of atrial fibrillation, Breast cancer, dementia, GERD, hypertension, sleep apnea. CT abdomen was negative of any acute process and some chronic pancreatitis. On exam patient denies any abdominal pain or nausea or vomiting and reports to eating breakfast. Patient lactic acid was elevated on admission and urine was positive and also with elevated white blood count of 13.6 with features of sepsis. ID consulted and will also consult cardiology for elevated troponin. Patient received a dose of IV ceftriaxone in the ED and will continue. Patient is confused and also states that he feels confused. Patient is afebrile and denies chest pain or shortness of breath. Will have PT/OT evaluate patient as well. Review Of Systems: Unable to obtain as patient is confused PHYSICAL EXAMINATION: GENERAL: 86 year old male awake and alert x1-2. Patient is confused, obese Well developed, well nourished. HEENT: Pupils are round and equally reacting to light. EOMI. no scleral icterus. No conjunctival pallor. Normocephalic, atraumatic. No pharyngeal erythema. No t hyromegaly. Dry mucous membranes CARDIOVASCULAR: S1 and S2 muffled, irregular PULMONARY: diminished breath sounds bilaterally with some scattered rhonchi noted. ABDOMEN: soft. Non-tender on exam. obese. non-distended, normoactive bowel sounds. No palpable organomegaly. MUSCULOSKELETAL: No joint swelling or deformity. EXTREMITIES: No cyanosis, clubbing, or pedal edema. NEUROLOGICAL: Gross neurological examination did not reveal any focal deficits. Diffuse weakness SKIN: No rashes. Assessment: Nausea, vomiting, and diarrhea possible gastritis Dehydration secondary to above Urinary tract infection with features of sepsis, present on admission lactic acidosis possibly secondary to above and also dehydration History of atrial fibrillation, currently rate controlled leukocytosis secondary to UTI Hypertension hyperlipidemia GERD Sleep apnea uses cpap at home dementia elevated troponins on admission, possibly secondary to dehydration. Cardio to evaluate. generalized weakness and gait dysfunction GI prophylaxis: protonix DVT prophylaxis: sub q heparin Full code Plan: Recommend to continue with current medications and infectious disease and cardiology consulted. Patient was given a dose of ceftriaxone in the ED and will continue. Urine . Recommend telemetry monitoring and cardiology to evaluate for elevated troponins. Patient nausea vomiting and diarrhea has resolved thus far since ed admission and patient is continued on gentle IV hydration and will continue. Patient with some confusion and family reports to him being alert and oriented x3 yesterday. Will have PT evaluate patient as well. Await urine cultures and will follow up with repeat am labs. Guarded prognosis. The impression and plan of care has been dictated by Marilin Avelar nurse pract itioner as directed. Dr. Susan MD I have performed a history and examination and MDM of this patient, discussed the same with the dictator, and agree with the dictator's assessment and plan as written ,documented as a scribe. Based on total visit time, I have performed more than 50% of the visit. Any additional findings or plans will be noted. Past Medical History Past Medical History: Atrial Fibrillation, Cancer, Dementia, GERD/Reflux, Hyperlipidemia, Hypertension, Sleep Apnea/CPAP/BIPAP Additional Past Medical History / Comment(s): USES C-PAP MACHINE, HX OF PANCREATITIS, SKIN CANCER, TINNITIS. History of Any Multi-Drug Resistant Organisms: None Reported Past Surgical History: Breast Surgery, Heart Catheterization, Joint Replacement Additional Past Surgical History / Comment(s): LUMP REMOVED RT BREAST, RT SHOULDER REPLACEMENT,RT TOTAL HIP X 2, RIGHT TOTAL KNEE, RIGHT CARPAL TUNNEL. Past Anesthesia/Blood Transfusion Reactions: No Reported Reaction Past Psychological History: Depression Smoking Status: Never smoker Past Alcohol Use History: Occasional Past Drug Use History: None Reported - Past Family History Mother Family Medical History: CVA/TIA Additional Family Medical History / Comment(s): 100 YR OLD Father Family Medical History: CVA/TIA Additional Family Medical History / Comment(s): AT AGE 68 Brother(s) Family Medical History: AFIB, AICD/Pacemaker, Cancer, Coronary Artery Disease (CAD), Hypertension Additional Family Medical History / Comment(s): HIATAL HERNIA, PROSTATE CA Medications and Allergies Home Medications Medication Instructions Recorded Confirmed Type Aspirin 81 mg PO DAILY 03/19/15 10/16/21 History Metoprolol Succinate [Toprol XL] 12.5 mg PO DAILY 03/19/15 10/16/21 History Pantoprazole Sodium [Protonix] 40 mg PO HS 03/19/15 10/16/21 History Rosuvastatin Calcium [Crestor] 10 mg PO HS 07/02/15 10/16/21 History Losartan Potassium [Cozaar] 25 mg PO DAILY 10/16/21 10/16/21 History Allergies Allergy/AdvReac Type Severity Reaction Status Date / Time No Known Allergies Allergy Verified 10/16/21 22:51 Physical Exam Vitals: Vital Signs Temp Pulse Pulse Resp BP BP Pulse Ox 10/17/21 08:20 98.5 F 78 16 124/71 99 10/17/21 06:55 98.1 F 67 18 132/78 99 10/17/21 05:58 98.3 F 64 19 129/74 96 10/16/21 21:23 98.4 F 70 19 126/84 95 Intake and Output 10/16/21 10/17/21 10/17/21 22:59 06:59 14:59 Other: Weight 90.718 kg Results CBC & Chem 7: 10/17/21 11:53 10/17/21 11:53 Labs: Abnormal Lab Results - Last 24 Hours (Table) 10/16/21 10/16/21 10/16/21 Range/Units 21:32 21:32 21:32 WBC 13.6 H (3.8-10.6) k/uL Neutrophils # 11.7 H (1.3-7.7) k/uL Lymphocytes # 0.8 L (1.0-4.8) k/uL Glucose 169 H (74-99) mg/dL Plasma Lactic Acid Sujit 2.4 H* (0.7-2.0) mmol/L Troponin I (0.000-0.034) ng/mL Ur Specific [place] (1.001-1.035) Urine Protein (Negative) Urine Ketones (Negative) Urine Blood (Negative) Ur Leukocyte Esterase (Negative) Urine RBC (0-5) /hpf Urine WBC (0-5) /hpf Urine WBC Clumps (None) /hpf Urine Bacteria (None) /hpf Urine Mucus (None) /hpf 10/16/21 10/17/21 Range/Units 21:32 00:52 WBC (3.8-10.6) k/uL Neutrophils # (1.3-7.7) k/uL Lymphocytes # (1.0-4.8) k/uL Glucose (74-99) mg/dL Plasma Lactic Acid Sujit (0.7-2.0) mmol/L Troponin I 0.049 H* (0.000-0.034) ng/mL Ur Specific [place] >1.050 H (1.001-1.035) Urine Protein 1+ H (Negative) Urine Ketones Trace H (Negative) Urine Blood Small H (Negative) Ur Leukocyte Esterase Large H (Negative) Urine RBC 7 H (0-5) /hpf Urine WBC 145 H (0-5) /hpf Urine WBC Clumps Rare H (None) /hpf Urine Bacteria Rare H (None) /hpf Urine Mucus Moderate H (None) /hpf Microbiology - Last 24 Hours (Table) 10/17/21 00:52 Urine Culture - Preliminary Urine,Voided Thrombosis Risk Factor Assmnt - DVT/VTE Prophylaxis DVT/VTE Prophylaxis: Pharmacologic Prophylaxis ordered Assessment and Plan Time with Patient: Greater than 30
[2021-10-17] MEDS ORDERED: PANTOPRAZOLE 40 MG TABLET PO SCH (21:00)
[2021-10-17] MEDS: HEPARIN SODIUM,PORCINE/PF 5,000 UNIT/0.5 ML SYRINGE SQ SCH (22:43)
[2021-10-17] MEDS: ATORVASTATIN 20 MG TAB PO SCH (22:44)
[2021-10-18] MEDS: SODIUM CHLORIDE 0.9% 1,000 ML IV SCH ×2 (06:45→18:52)
[2021-10-18 08:01] LABS: African American GFR (CKD) >90 (>60 ml/min/1.73 sqM); Anion Gap 7 mmol/L; Blood Urea Nitrogen 16 mg/dL (9-20); Calcium 8.2 mg/dL (8.4-10.2); Carbon Dioxide 23 mmol/L (22-30); Chloride 109 mmol/L (98-107); Glucose 123 mg/dL (74-99); Non-African American GFR(CKD) 79 (>60 ml/min/1.73 sqM); Potassium 3.8 mmol/L (3.5-5.1); Sodium 139 mmol/L (137-145)
[2021-10-18 08:02] LABS: Basophils % (A) 0 %; Eosinophils # (A) 0.2 k/uL (0-0.7); Eosinophils % (A) 2 %; HCT 40.5 % (39.0-53.0); HGB 13.3 gm/dL (13.0-17.5); Lymphocytes # (A) 1.8 k/uL (1.0-4.8); Lymphocytes % (A) 16 %; MCH 32.9 pg (25.0-35.0); MCHC 32.9 g/dL (31.0-37.0); Mean Platelet Volume 8.2; Monocytes # (A) 0.6 k/uL (0-1.0); Monocytes % (A) 6 %; Neutrophils # (A) 8.5 k/uL (1.3-7.7); Neutrophils % (A) 74 %; Platelet Count 190 k/uL (150-450); RBC 4.05 m/uL (4.30-5.90); WBC 11.4 k/uL (3.8-10.6)
[2021-10-18] MEDS: HEPARIN SODIUM,PORCINE/PF 5,000 UNIT/0.5 ML SYRINGE SQ SCH ×2 (09:56→21:55)
[2021-10-18] MEDS: PANTOPRAZOLE 40 MG/10 ML VIAL IV SCH (09:56)
[2021-10-18] MEDS: LOSARTAN 25 MG TAB PO SCH (09:57)
[2021-10-18] MEDS: METOPROLOL SUCCINATE (ER) 25 MG TAB.ER.24H PO SCH (09:57)
[2021-10-18] MEDS: ASPIRIN 81 MG PO SCH (09:57)
--- NOTE | 2021-10-18 12:42 | P.CRDCN ---
History of Present Illness Consult date: 10/18/21 Chief complaint: Elevated Troponin History of present illness: This is Jarret Powers NP, I'm dictating on behalf of Dr. Cruz's H&P and A&P The patient was interviewed and examined. HPI: Patient is a pleasant 86-year-old male who initially presented to the hospital with complaints of weakness, and with subsequent found to have UTI and elevated troponin. Patient was also found to be dehydrated, with suspected sepsis. Patient states he has had no chest pain, no shortness of breath, and no dizziness prior to admission, or at this time. Patient has a past medical history of atrial fibrillation, rest cancer, dementia, GERD, hypertension, sleep apnea. Patient was found to have an elevated lactic acid, elevated white blood cell count, and confusion on admission. He has been afebrile. ROS: [No fever, chills, or rigors] [no cough, phlegm, or expectoration] [no nausea, vomiting, or diarrhea] [no hematuria, dysuria] [no musculoskelatal complaints] [no strokes or seizures] [no skin lesions] EXAMINATION: GENERAL: Well-appearing, well-nourished and in no acute distress. NECK: Supple without JVD or thyromegaly. LUNGS: Breath sounds clear to auscultation bilaterally. Respiration equal and unlabored. No wheezes, rales or rhonchi. HEART: Regular rate and rhythm without murmurs, rubs or gallops. S1 and S2 heard. EXTREMITIES: Normal range of motion, no edema. No clubbing or cyanosis. Peripheral pulses intact and strong. REVIEW OF LABS, ECG & MEDICAL DATA: LABS: White count 11.4, hemoglobin 13.3, sodium 139, potassium 3.8, BUNs 16, creatinine 0.86, calcium 8.2, magnesium 2.0, troponin 0.060, 0.067 EKG: Normal sinus rhythm with first-degree block IMAGING: CT of the abdomen and pelvis dated 10/26/2021 demonstrates interstitial infiltrates and subsegmental atelectasis at the lung bases. There is probably pulmonary fibrosis. Cardiomegaly. Calcification consistent with chronic pancreatitis. Sigmoid diverticulosis without diverticulitis. Normal appendix. Moderately severe osteoarthritis in the left hip joint. VITALS: Temp 97.2, pulse 69, blood pressure 107/66, O2 saturation 94% on room air IMPRESSION/PLAN: 1. Elevated troponin-mild, likely secondary to dehydration and sepsis. Per the patient's symptomatology, EKG, and flat troponins, the patient does not have an acute NC at this time. 2. Sepsis-internal medicine to manage 3. Dehydration 4. Hypertension-continue home medications. We will sign off on this patient. These do not hesitate to contact us if further recommendations are needed. Thank you for the consult and allowing us to participate in the care of this patient. Past Medical History Past Medical History: Atrial Fibrillation, Cancer, Dementia, GERD/Reflux, Hyperlipidemia, Hypertension, Sleep Apnea/CPAP/BIPAP Additional Past Medical History / Comment(s): USES C-PAP MACHINE, HX OF PANCREATITIS, SKIN CANCER, TINNITIS. History of Any Multi-Drug Resistant Organisms: None Reported Past Surgical History: Breast Surgery, Heart Catheterization, Joint Replacement Additional Past Surgical History / Comment(s): LUMP REMOVED RT BREAST, RT SHOULDER REPLACEMENT,RT TOTAL HIP X 2, RIGHT TOTAL KNEE, RIGHT CARPAL TUNNEL. Past Anesthesia/Blood Transfusion Reactions: No Reported Reaction Past Psychological History: Depression Smoking Status: Never smoker Past Alcohol Use History: Occasional Past Drug Use History: None Reported - Past Family History Mother Family Medical History: CVA/TIA Additional Family Medical History / Comment(s): 100 YR OLD Father Family Medical History: CVA/TIA Additional Family Medical History / Comment(s): AT AGE 68 Brother(s) Family Medical History: AFIB, AICD/Pacemaker, Cancer, Coronary Artery Disease (CAD), Hypertension Additional Family Medical History / Comment(s): HIATAL HERNIA, PROSTATE CA Medications and Allergies Home Medications Medication Instructions Recorded Confirmed Type Aspirin 81 mg PO DAILY 03/19/15 10/16/21 History Metoprolol Succinate [Toprol XL] 12.5 mg PO DAILY 03/19/15 10/16/21 History Pantoprazole Sodium [Protonix] 40 mg PO HS 03/19/15 10/16/21 History Rosuvastatin Calcium [Crestor] 10 mg PO HS 07/02/15 10/16/21 History Losartan Potassium [Cozaar] 25 mg PO DAILY 10/16/21 10/16/21 History Allergies Allergy/AdvReac Type Severity Reaction Status Date / Time No Known Allergies Allergy Verified 10/16/21 22:51 Physical Exam Vitals: Vital Signs Temp Pulse Resp BP Pulse Ox 10/18/21 04:50 98.3 F 67 18 122/75 96 10/17/21 23:45 99.5 F 60 20 117/74 94 L 10/17/21 20:55 99.2 F 62 20 113/62 95 10/17/21 16:00 96.9 F L 69 18 149/63 93 L 10/17/21 13:15 96.9 F L 73 16 123/74 93 L Intake and Output 10/17/21 10/18/21 10/18/21 22:59 06:59 14:59 Intake Total 1590 Output Total 100 100 Balance 1590 -100 -100 Intake: Intake, IV Titration 1350 Amount Sodium Chloride 0.9% 1, 1300 000 ml @ 130 mls/hr IV . Q7H42M [facility] Rx#:[id number] cefTRIAXone 2 gm In 50 Sodium Chloride 0.9% 50 ml @ 100 mls/hr IVPB Q24HR [facility] Rx#:[id number] Oral 240 Output: Urine 100 100 Other: # Voids 1 Weight 90.718 kg Results 10/18/21 07:16 10/18/21 07:16 Cardiac Enzymes 10/17/21 10/18/21 Range/Units 11:53 07:16 Troponin I 0.060 H* 0.067 H* (0.000-0.034) ng/mL CBC 10/17/21 10/18/21 Range/Units 11:53 07:16 WBC 14.5 H 11.4 H (3.8-10.6) k/uL RBC 4.54 4.05 L (4.30-5.90) m/uL Hgb 14.6 13.3 (13.0-17.5) gm/dL Hct 45.4 40.5 (39.0-53.0) % Plt Count 197 190 (150-450) k/uL Comprehensive Metabolic Panel 10/17/21 10/18/21 Range/Units 11:53 07:16 Sodium 138 139 (137-145) mmol/L Potassium 4.0 3.8 (3.5-5.1) mmol/L Chloride 107 109 H (98-107) mmol/L Carbon Dioxide 22 23 (22-30) mmol/L BUN 17 16 (9-20) mg/dL Creatinine 0.88 0.86 (0.66-1.25) mg/dL Glucose 131 H 123 H (74-99) mg/dL Calcium 8.6 8.2 L (8.4-10.2) mg/dL Current Medications Generic Name Dose Route Start Last Admin Trade Name Freq PRN Reason Stop Dose Admin Acetaminophen 650 mg 10/17/21 15:43 Acetaminophen Tab 325 Mg Tab PO Q6HR PRN Fever and/ or Pain Aspirin 81 mg 10/17/21 09:00 10/17/21 08:24 Aspirin 81 Mg PO 81 mg DAILY [facility] Administration Atorvastatin Calcium 20 mg 10/17/21 21:00 10/17/21 22:44 Atorvastatin 20 Mg Tab PO 20 mg HS [facility] Administration Heparin Sodium (Porcine) 5,000 unit 10/17/21 21:00 10/17/21 22:43 Heparin Sodium,Porcine/Pf 5,000 Unit/0.5 Ml Syringe SQ 5,000 unit Q12HR [facility] Administration Sodium Chloride 1,000 mls @ 75 mls/hr 10/17/21 06:00 10/18/21 06:45 Saline 0.9% IV 75 mls/hr .[id number] [facility] Administration Ceftriaxone Sodium 2 gm/ 50 mls @ 100 mls/hr 10/18/21 09:00 Sodium Chloride IVPB Q24HR [facility] Protocol Losartan Potassium 25 mg 10/17/21 09:00 10/17/21 08:23 Losartan 25 Mg Tab PO 25 mg DAILY [facility] Administration Metoprolol Succinate 12.5 mg 10/17/21 09:00 10/17/21 08:23 Metoprolol Succinate (Er) 25 Mg Tab.Er.24h PO 12.5 mg DAILY [facility] Administration Morphine Sulfate 4 mg 10/17/21 05:49 Morphine Sulfate 4 Mg/Ml Syringe IV Q4HR PRN Severe Pain Naloxone HCl 0.2 mg 10/17/21 05:49 Naloxone 0.4 Mg/Ml 1 Ml Vial IV Q2M PRN Opioid Reversal Ondansetron HCl 4 mg 10/17/21 05:49 Ondansetron 4 Mg/2 Ml Vial IVP Q8HR PRN Nausea And Vomiting Pantoprazole Sodium 40 mg 10/17/21 09:00 10/17/21 08:23 Pantoprazole 40 Mg/10 Ml Vial IV 40 mg DAILY [facility] Administration Quetiapine Fumarate 25 mg 10/17/21 19:41 Quetiapine 25 Mg Tab PO HS PRN Agitation Intake and Output 10/17/21 10/18/21 10/18/21 22:59 06:59 14:59 Intake Total 1590 Output Total 100 100 Balance 1590 -100 -100 Intake: Intake, IV Titration 1350 Amount Sodium Chloride 0.9% 1, 1300 000 ml @ 130 mls/hr IV . Q7H42M [facility] Rx#:[id number] cefTRIAXone 2 gm In 50 Sodium Chloride 0.9% 50 ml @ 100 mls/hr IVPB Q24HR [facility] Rx#:[id number] Oral 240 Output: Urine 100 100 Other: # Voids 1 Weight 90.718 kg 10/18/21 07:16 10/18/21 07:16
--- NOTE | 2021-10-18 13:45 | P.PN ---
Subjective Progress Note Date: 10/18/21 PROGRESS NOTE: This is an 86-year-old male who was recently brought to the ER after becoming weak and having nausea, vomiting, and diarrhea with confusion. Family reports that he is normally alert and oriented x3 and has not been acting himself. Patient diet has drastically reduced and oral intake is poor over the last day or two. Patient has history of atrial fibrillation, Breast cancer, dementia, FIDEL D, hypertension, sleep apnea. CT abdomen was negative of any acute process and some chronic pancreatitis. On exam patient denies any abdominal pain or nausea or vomiting and reports to eating breakfast. Patient lactic acid was elevated on admission and urine was positive and also with elevated white blood count of 13.6 with features of sepsis. ID consulted and will also consult cardiology for elevated troponin. Patient received a dose of IV ceftriaxone in the ED and will continue. Patient is confused and also states that he feels confused. Patient is afebrile and denies chest pain or shortness of breath. Will have PT/OT evaluate patient as well. 10/18/2021 Patient seen on evaluation resting in bed comfortably no acute distress, continues antimicrobial therapy with Rocephin, urine cultures are pending currently no growth at this time. No fevers, white count trending down. Renal function stable creatinine 0.6, mildly elevated troponins flat trend. Blood pressure and heart rate is stable, saturating above 90% on room air. He is on regular diet, tolerating, not requiring antibiotics today is continued on IV Protonix. Review Of Systems: Unable to obtain as patient is confused PHYSICAL EXAMINATION: GENERAL: 86 year old male awake and alert x1-2. Patient is confused, obese Well developed, well nourished. HEENT: Pupils are round and equally reacting to light. EOMI. no scleral icterus. No conjunctival pallor. Normocephalic, atraumatic. No pharyngeal erythema. No thyromegaly. Dry mucous membranes CARDIOVASCULAR: S1 and S2 muffled, irregular PULMONARY: diminished breath sounds bilaterally with some scattered rhonchi noted. ABDOMEN: soft. Non-tender on exam. obese. non-distended, normoactive bowel sounds. No palpable organomegaly. MUSCULOSKELETAL: No joint swelling or deformity. EXTREMITIES: No cyanosis, clubbing, or pedal edema. NEUROLOGICAL: Gross neurological examination did not reveal any focal deficits. Diffuse weakness SKIN: No rashes. Assessment: Possible gastritis, improving Dehydration , improving Sepsis, most probably secondary to UTI lactic acidosis possibly secondary to above and also dehydration History of atrial fibrillation, currently rate controlled leukocytosis secondary to UTI, white count trending down Hypertension hyperlipidemia GERD Sleep apnea uses cpap at home dementia elevated troponins generalized weakness and gait dysfunction GI prophylaxis: protonix DVT prophylaxis: sub q heparin Full code Plan: Recomm continue antimicrobial therapy with Rocephin, urine culture pending follow-up results, infectious disease is following. Dilated by cardiology for elevated troponins flat trend, felt to be due to sepsis, no evidence of NM. Regular diet as tolerated continue IV Protonix, antiemetics as needed, IV hydration saline at 75, monitor lites and renal function Continue Seroquel 25 mg at night as needed morphine as needed for pain, avoid oversedation Prognosis is guarded The impression and plan of care has been dictated by Chi Gil nurse practitioner as directed. Dr. Susan MD I have performed a history and examination and MDM of this patient, discussed the same with the dictator, and agree with the dictator's assessment and plan as written ,documented as a scribe. Based on total visit time, I have performed more than 50% of the visit. Any additional findings or plans will be noted. Objective - Vital Signs Vital signs: Vital Signs Temp 97.2 F L 10/18/21 08:00 Pulse 67 10/18/21 12:00 Resp 18 10/18/21 08:00 BP 123/68 10/18/21 12:00 Pulse Ox 94 L 10/18/21 12:00 FiO2 Intake & Output 10/17/21 10/18/21 10/18/21 18:59 06:59 18:59 Intake Total 2070 240 Output Total 100 100 Balance 2069 -100 140 Weight 90.718 kg Intake: Intake, IV Titration 1350 Amount Sodium Chloride 0.9% 1, 1300 000 ml @ 130 mls/hr IV . Q7H42M [facility] Rx#:[id number] cefTRIAXone 2 gm In 50 Sodium Chloride 0.9% 50 ml @ 100 mls/hr IVPB Q24HR [facility] Rx#:[id number] Oral 720 240 Output: Urine 100 100 Other: # Voids 1 - Labs CBC & Chem 7: 10/18/21 07:16 10/18/21 07:16 Labs: Abnormal Lab Results - Last 24 Hours (Table) 10/18/21 10/18/21 10/18/21 Range/Units 07:16 07:16 07:16 WBC 11.4 H (3.8-10.6) k/uL RBC 4.05 L (4.30-5.90) m/uL Neutrophils # 8.5 H (1.3-7.7) k/uL Chloride 109 H (98-107) mmol/L Glucose 123 H (74-99) mg/dL Calcium 8.2 L (8.4-10.2) mg/dL Troponin I 0.067 H* (0.000-0.034) ng/mL
[2021-10-18] MEDS: ATORVASTATIN 20 MG TAB PO SCH (21:55)
--- NOTE | 2021-10-18 22:18 | P.CONS ---
History of Present Illness - Reason for Consult Consult date: 10/18/21 UTI/sepsis Requesting physician: Marilin Avelar - Chief Complaint Weakness x few days - History of Present Illness Patient is 86-year-old male with a past medical history significant for hypertension hyperlipidemia dementia presenting to the ER for evaluation of weakness also with some confusion nausea vomiting symptom has been going on for day or 2 before presentation to the hospital no history of any fall on arrival to the ER patient was afebrile and no fever have been recorded subsequently patient did have a white count of 13.6 with a left shift BUN/creatinine was normal liver enzymes are normal urine was positive patient has been started on Rocephin 2 g daily infectious disease was consulted for further management patient notably difficult historian however not specifically denies having any chest pain shortness of breath or cough no further nausea vomiting no abdominal pain no diarrhea Review of Systems Positive points has been mentioned in HPI complete review could not be obtained because of his underlying mental status Past Medical History Past Medical History: Atrial Fibrillation, Cancer, Dementia, GERD/Reflux, Hyperlipidemia, Hypertension, Sleep Apnea/CPAP/BIPAP Additional Past Medical History / Comment(s): USES C-PAP MACHINE, HX OF PANCREA TITIS, SKIN CANCER, TINNITIS. History of Any Multi-Drug Resistant Organisms: None Reported Past Surgical History: Breast Surgery, Heart Catheterization, Joint Replacement Additional Past Surgical History / Comment(s): LUMP REMOVED RT BREAST, RT SHOULDER REPLACEMENT,RT TOTAL HIP X 2, RIGHT TOTAL KNEE, RIGHT CARPAL TUNNEL. Past Anesthesia/Blood Transfusion Reactions: No Reported Reaction Past Psychological History: Depression Smoking Status: Never smoker Past Alcohol Use History: Occasional Past Drug Use History: None Reported - Past Family History Mother Family Medical History: CVA/TIA Additional Family Medical History / Comment(s): 100 YR OLD Father Family Medical History: CVA/TIA Additional Family Medical History / Comment(s): AT AGE 68 Brother(s) Family Medical History: AFIB, AICD/Pacemaker, Cancer, Coronary Artery Disease (CAD), Hypertension Additional Family Medical History / Comment(s): HIATAL HERNIA, PROSTATE CA Medications and Allergies Home Medications Medication Instructions Recorded Confirmed Type Aspirin 81 mg PO DAILY 03/19/15 10/16/21 History Metoprolol Succinate [Toprol XL] 12.5 mg PO DAILY 03/19/15 10/16/21 History Pantoprazole Sodium [Protonix] 40 mg PO HS 03/19/15 10/16/21 History Rosuvastatin Calcium [Crestor] 10 mg PO HS 07/02/15 10/16/21 History Losartan Potassium [Cozaar] 25 mg PO DAILY 10/16/21 10/16/21 History Allergies Allergy/AdvReac Type Severity Reaction Status Date / Time No Known Allergies Allergy Verified 10/16/21 22:51 Physical Exam Vitals: Vital Signs Temp Pulse Resp BP Pulse Ox 10/18/21 08:00 97.2 F L 69 18 107/66 94 L 10/18/21 04:50 98.3 F 67 18 122/75 96 10/17/21 23:45 99.5 F 60 20 117/74 94 L 10/17/21 20:55 99.2 F 62 20 113/62 95 10/17/21 16:00 96.9 F L 69 18 149/63 93 L 10/17/21 13:15 96.9 F L 73 16 123/74 93 L Intake and Output 10/17/21 10/18/21 10/18/21 22:59 06:59 14:59 Intake Total 1590 240 Output Total 100 100 Balance 1590 -100 140 Intake: Intake, IV Titration 1350 Amount Sodium Chloride 0.9% 1, 1300 000 ml @ 130 mls/hr IV . [id number] [facility] Rx#:[id number] cefTRIAXone 2 gm In 50 Sodium Chloride 0.9% 50 ml @ 100 mls/hr IVPB Q24HR [facility] Rx#:[id number] Oral 240 240 Output: Urine 100 100 Other: # Voids 1 Weight 90.718 kg GENERAL DESCRIPTION: An elderly male lying in bed, no distress. No tachypnea or accessory muscle of respiration use. HEENT: Shows Pallor , no scleral icterus. Oral mucous membrane is dry. No pharyngeal erythema or thrush NECK: Trachea central, no thyromegaly. LUNGS: Unlabored breathing. Clear to auscultation anteriorly. No wheeze or crackle. HEART: S1, S2, regular rate and rhythm. No loud murmur ABDOMEN: Soft, no tenderness , guarding or rigidity, no organomegaly EXTREMITIES: No edema of feet. SKIN: No rash, no masses palpable. NEUROLOGICAL: The patient is awake, alert, oriented x2, mood and affect normal. Results CBC & Chem 7: 10/18/21 07:16 10/18/21 07:16 Labs: Abnormal Lab Results - Last 24 Hours (Table) 10/17/21 10/17/21 10/17/21 Range/Units 11:53 11:53 11:53 WBC 14.5 H (3.8-10.6) k/uL RBC (4.30-5.90) m/uL MCV 100.1 H (80.0-100.0) fL Neutrophils # 12.1 H (1.3-7.7) k/uL Chloride (98-107) mmol/L Glucose 131 H (74-99) mg/dL Calcium (8.4-10.2) mg/dL Troponin I 0.060 H* (0.000-0.034) ng/mL 10/18/21 10/18/21 10/18/21 Range/Units 07:16 07:16 07:16 WBC 11.4 H (3.8-10.6) k/uL RBC 4.05 L (4.30-5.90) m/uL MCV (80.0-100.0) fL Neutrophils # 8.5 H (1.3-7.7) k/uL Chloride 109 H (98-107) mmol/L Glucose 123 H (74-99) mg/dL Calcium 8.2 L (8.4-10.2) mg/dL Troponin I 0.067 H* (0.000-0.034) ng/mL Microbiology - Last 24 Hours (Table) 10/17/21 00:52 Urine Culture - Preliminary Urine,Voided Assessment and Plan (1) UTI (urinary tract infection) Current Visit: Yes Status: Acute Code(s): N39.0 - URINARY TRACT INFECTION, SITE NOT SPECIFIED SNOMED Code(s): 42664084 Plan: 1patient presented to hospital with weakness which is multifactorial in this patient with likely component of urinary tract infection from enteric gram- negative pathogen. 2patient to continue with the Rocephin 2 g daily while waiting for the culture to finalize. 3gentle IV fluid. We will follow on clinical condition and cultures to further adjust medication if needed Thank you for this consultation will follow this patient along with you Time with Patient: Greater than 30
[2021-10-19 07:56] LABS: MCH 32.1 pg (25.0-35.0); MCHC 32.6 g/dL (31.0-37.0); MCV 98.7 fL (80.0-100.0); Mean Platelet Volume 8.3; Platelet Count 176 k/uL (150-450); RBC 4.05 m/uL (4.30-5.90); RDW 12.2 % (11.5-15.5)
[2021-10-19 08:03] LABS: African American GFR (CKD) >90 (>60 ml/min/1.73 sqM); Anion Gap 5 mmol/L; Blood Urea Nitrogen 15 mg/dL (9-20); Carbon Dioxide 25 mmol/L (22-30); Chloride 107 mmol/L (98-107); Glucose 105 mg/dL (74-99); Non-African American GFR(CKD) 80 (>60 ml/min/1.73 sqM); Potassium 3.7 mmol/L (3.5-5.1); Sodium 137 mmol/L (137-145)
[2021-10-19] MEDS: HEPARIN SODIUM,PORCINE/PF 5,000 UNIT/0.5 ML SYRINGE SQ SCH ×2 (09:09→20:41)
[2021-10-19] MEDS: LOSARTAN 25 MG TAB PO SCH (09:09)
[2021-10-19] MEDS: ASPIRIN 81 MG PO SCH (09:09)
[2021-10-19] MEDS: METOPROLOL SUCCINATE (ER) 25 MG TAB.ER.24H PO SCH (09:09)
[2021-10-19] MEDS: SODIUM CHLORIDE 0.9% 1,000 ML IV SCH (10:36)
--- NOTE | 2021-10-19 10:41 | P.PN ---
Subjective PROGRESS NOTE: This is an 86-year-old male who was recently brought to the ER after becoming weak and having nausea, vomiting, and diarrhea with confusion. Family reports that he is normally alert and oriented x3 and has not been acting himself. P atient diet has drastically reduced and oral intake is poor over the last day or two. Patient has history of atrial fibrillation, Breast cancer, dementia, GERD, hypertension, sleep apnea. CT abdomen was negative of any acute process and some chronic pancreatitis. On exam patient denies any abdominal pain or nausea or vomiting and reports to eating breakfast. Patient lactic acid was elevated on admission and urine was positive and also with elevated white blood count of 13.6 with features of sepsis. ID consulted and will also consult cardiology for elevated troponin. Patient received a dose of IV ceftriaxone in the ED and will continue. Patient is confused and also states that he feels confused. Patient is afebrile and denies chest pain or shortness of breath. Will have PT/OT evaluate patient as well. 10/18/2021 Patient seen on evaluation resting in bed comfortably no acute distress, con tinues antimicrobial therapy with Rocephin, urine cultures are pending currently no growth at this time. No fevers, white count trending down. Renal function stable creatinine 0.6, mildly elevated troponins flat trend. Blood pressure and heart rate is stable, saturating above 90% on room air. He is on regular diet, tolerating, not requiring antibiotics today is continued on IV Protonix. 10/19/2021 Patient's white blood cell count improved at this time, IV fluids will be discontinued patient will be monitored. Urine cultures are positive for Enterobacter patient is on Rocephin infectious disease is following the patient patient has baseline dementia is confusion presently appears to be at his baseline. Patient will need physical therapy and occupational therapy evaluation possibility of discharge to subacute rehabilitation. Review of systems: Not reliable because of his baseline confusion All inpatient medications were reviewed and appropriate changes in these medications as dictated in the interval history and assessment and plan. PHYSICAL EXAMINATION: GENERAL: 86 year old male awake and alert x1-2. Patient is confused, obese Well developed, well nourished. HEENT: Pupils are round and equally reacting to light. EOMI. no scleral icterus. No conjunctival pallor. Normocephalic, atraumatic. No pharyngeal erythema. No thyromegaly. Dry mucous membranes CARDIOVASCULAR: S1 and S2 muffled, irregular PULMONARY: diminished breath sounds bilaterally with some scattered rhonchi noted. ABDOMEN: soft. Non-tender on exam. obese. non-distended, normoactive bowel sounds. No palpable organomegaly. MUSCULOSKELETAL: No joint swelling or deformity. EXTREMITIES: No cyanosis, clubbing, or pedal edema. NEUROLOGICAL: Gross neurological examination did not reveal any focal deficits. Diffuse weakness SKIN: No rashes. Assessment: Sepsis, most probably secondary to UTI Dehydration , improving can you IV fluids lactic acidosis possibly secondary to above and also dehydration History of atrial fibrillation, currently rate controlled leukocytosis secondary to UTI, white count trending down Hypertension hyperlipidemia GERD Sleep apnea uses cpap at home dementia elevated troponins generalized weakness and gait dysfunction is alert and occupational therapy evaluation GI prophylaxis: protonix DVT prophylaxis: sub q heparin Full code Plan: Recomm continue antimicrobial therapy with Rocephin, urine culture Enterobacter follow-up results, infectious disease is following. Dilated by cardiology for elevated troponins flat trend, felt to be due to sepsis, no evidence of [place]. Regular diet as tolerated continue IV Protonix, antiemetics this can urine IV fluids monitor lites and renal function Continue Seroquel 25 mg at night as needed . Objective - Vital Signs Vital signs: Vital Signs Temp 98.5 F 10/19/21 07:12 Pulse 66 10/19/21 07:12 Resp 18 10/19/21 07:12 BP 127/76 10/19/21 07:12 Pulse Ox 92 L 10/19/21 07:12 FiO2 Intake & Output 10/18/21 10/19/21 10/19/21 18:59 06:59 18:59 Intake Total 1008 Output Total 100 Balance 908 Intake: Intake, IV Titration 650 Amount Sodium Chloride 0.9% 1, 600 000 ml @ 75 mls/hr IV . [id number] [facility] Rx#:[id number] cefTRIAXone 2 gm In 50 Sodium Chloride 0.9% 50 ml @ 100 mls/hr IVPB Q24HR [facility] Rx#:[id number] Oral 358 Output: Urine 100 Other: # Voids 1 - Labs CBC & Chem 7: 10/19/21 07:37 10/19/21 07:37 Labs: Abnormal Lab Results - Last 24 Hours (Table) 10/19/21 10/19/21 Range/Units 07:37 07:37 RBC 4.05 L (4.30-5.90) m/uL Glucose 105 H (74-99) mg/dL Calcium 8.0 L (8.4-10.2) mg/dL Microbiology - Last 24 Hours (Table) 10/17/21 00:52 Urine Culture - Final Urine,Voided Enterobacter aerogenes
[2021-10-19] MEDS: PANTOPRAZOLE 40 MG/10 ML VIAL IV SCH (11:51)
--- NOTE | 2021-10-19 17:33 | XR ---
EXAMINATION TYPE: XR shoulder complete LT DATE OF EXAM: 10/19/2021 COMPARISON: NONE HISTORY: Pain TECHNIQUE: 3 views FINDINGS: There is severe narrowing of the glenohumeral joint space with sclerosis and spur formation . I see no fracture nor dislocation. There is some periarticular calcification. 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 No fracture.
--- NOTE | 2021-10-19 18:07 | XR ---
EXAMINATION TYPE: XR humerus LT DATE OF EXAM: 10/19/2021 COMPARISON: NONE HISTORY: Pain TECHNIQUE: 4 views FINDINGS: There is moderately severe osteoarthritis in the glenohumeral joint. The elbow joint is int act. Elbow joint spaces appear normal. No sign of elbow joint effusion. IMPRESSION: No evidence of humerus fracture. Significant osteoarthritis in the left shoulder joint.
[2021-10-19] MEDS: ATORVASTATIN 20 MG TAB PO SCH (20:41)
[2021-10-20 01:20] VITALS: RESP 18
[2021-10-20] MEDS ORDERED: PANTOPRAZOLE 40 MG TABLET PO SCH (07:30)
[2021-10-20] MEDS: HEPARIN SODIUM,PORCINE/PF 5,000 UNIT/0.5 ML SYRINGE SQ SCH (07:41)
[2021-10-20] MEDS: ASPIRIN 81 MG PO SCH (07:41)
[2021-10-20] MEDS: METOPROLOL SUCCINATE (ER) 25 MG TAB.ER.24H PO SCH (07:41)
[2021-10-20] MEDS: LOSARTAN 25 MG TAB PO SCH (07:42)
[2021-10-20 15:15] VITALS: BP 121/63; PULSE 66; TEMP 98.5
--- NOTE | 2021-10-21 09:41 | P.DS ---
Providers Date of admission: 10/17/21 05:49 Expected date of discharge: 10/20/21 Attending physician: Rohan Minor Consults: 10/17/21 10:38 Consult Physician Stat Consulting Provider: Sea Gonzalez Consult Reason/Comments: elevated trop Do you want consulting provider notified?: Yes 10/17/21 19:43 Consult Physician Urgent Consulting Provider: Jaylen Flowers Consult Reason/Comments: UTI/ sepsis Do you want consulting provider notified?: Yes Primary care physician: Pauline Summers Hospital Course: Final diagnosis Sepsis, most probably secondary to UTI Dehydration lactic acidosis possibly secondary to above and also dehydration History of atrial fibrillation, currently rate controlled leukocytosis secondary to UTI, white count trending down Hypertension hyperlipidemia GERD Sleep apnea uses cpap at home dementia elevated troponins generalized weakness and gait dysfunction GI prophylaxis DVT prophylaxis Full code Discharge disposition Patient is being discharged in a stable condition with guarded prognosis to home with [facility]. Patient will follow-up with Dr. Summers in the outpatient setting upon discharge. Patient is to continue with oral Cipro twice daily for the next one week to complete the course. Total time taken is greater than 35 minutes. Hospital course This is a 86-year-old male who was recently admitted with increased weakness having some nausea vomiting and diarrhea with increased confusion per family and was being closely monitored. Patient also had some mild elevations in troponins and was evaluated by cardiology and ACS was ruled out. Patient's urine and lactic acid were abnormal on admission and patient was started on antibiotics along with gentle IV hydration. Infectious disease was following and patient was maintained on ceftriaxone. Patient urine culture finalized showing Enterobacter aerogenes and will continue with Cipro twice daily for the next one week to complete the course. Patient with significant weakness was evaluated by physical therapy and family would like patient to come home and continue with home care in the outpatient setting. Patient denies any further nausea vomiting or abdominal pain and is tolerating diet. Patient will follow-up with primary care provider Dr. Summers on discharge. Recommend repeat labs in the outpatient setting in 2 or 3 days. Currently no reports of chest pain, shortness of breath, or palpitations. Patient is afebrile. No reports of nausea or vomiting and patient is tolerating diet. Patient will be discharged home today. Guarded prognosis. Physical exam: Gen: This is a 86-year-old male awake alert and oriented 2-3. HEENT: Head is atraumatic, normocephalic. Pupils equal, round. Sclerae is anicteric. NECK: Supple. No JVD. No lymphadenopathy. No thyromegaly. LUNGS: Clear to auscultation. No wheezes or rhonchi. No intercostal retractions. HEART: Regular rate and rhythm. No murmur. ABDOMEN: Soft. Bowel sounds are present. No masses. No tenderness. EXTREMITIES: No pedal edema. No calf tenderness. NEUROLOGICAL: Patient is awake, alert and oriented x3. Cranial nerves 2 through 12 are grossly intact. Please refer to medication reconciliation sheet for a list of medications. The impression and plan of care has been dictated by Marilin Avelar, Nurse Practitioner as directed. Dr. Susan MD I have performed a history and examination and MDM of this patient, discussed the same with the dictator, and agree with the dictator's assessment and plan as written ,documented as a scribe. Based on total visit time, I have performed more than 50% of the visit. Patient Condition at Discharge: Fair Plan - Discharge Summary Discharge Rx Participant: No New Discharge Prescriptions: New Ciprofloxacin HCl [Cipro] 500 mg PO BID 7 Days #14 tab Acetaminophen Tab [Tylenol] 650 mg PO Q6HR PRN tab PRN Reason: Fever And/ Or Pain Continue Metoprolol Succinate [Toprol XL] 12.5 mg PO DAILY Aspirin 81 mg PO DAILY Pantoprazole Sodium [Protonix] 40 mg PO HS Rosuvastatin Calcium [Crestor] 10 mg PO HS Losartan Potassium [Cozaar] 25 mg PO DAILY Discharge Medication List Aspirin 81 mg PO DAILY 03/19/15 [History] Metoprolol Succinate [Toprol XL] 12.5 mg PO DAILY 03/19/15 [History] Pantoprazole Sodium [Protonix] 40 mg PO HS 03/19/15 [History] Rosuvastatin Calcium [Crestor] 10 mg PO HS 07/02/15 [History] Losartan Potassium [Cozaar] 25 mg PO DAILY 10/16/21 [History] Acetaminophen Tab [Tylenol] 650 mg PO Q6HR PRN tab 10/20/21 [Rx] Ciprofloxacin HCl [Cipro] 500 mg PO BID 7 Days #14 tab 10/20/21 [Rx] Follow up Appointment(s)/Referral(s): Pauline Summers MD [Primary Care Provider] - 11/17/21 10:00 am [facility], [NON-STAFF] - Patient Instructions/Handouts: Urinary Tract Infection in Men (DC) Activity/Diet/Wound Care/Special Instructions: Patient will require a hospital bed to keep the head of bed elevated to 30 degrees due to Sleep Apnea that needs to be continued with head of bed elevation and CPAP treatment. Activity Limited until follow-up Follow-up with primary care provider on discharge Continue taking medications as prescribed Continue regular diet Continue taking antibiotics completely until finished Discharge Disposition: HOME WITH HOME HEALTH SERVICES
== END 2021-10-20 18:36 | disposition home health service (06) | DRG 872 ==
LOC: EC 21:02 → 3SCARD 10-17 05:49 → 4SSUR 10-19 05:05
PROVIDERS: ADMIT Hospitalist; ATTEND Hospitalist
DX: A41.9 Sepsis, unspecified organism (principal); E87.2 Acidosis; K86.1 Other chronic pancreatitis; N39.0 Urinary tract infection, site not specified; R77.8 Other specified abnormalities of plasma proteins; E86.0 Dehydration; E78.5 Hyperlipidemia, unspecified; F03.90 Unspecified dementia, unspecified severity, without behavioral disturbance, psychotic disturbance, mood disturbance, and anxiety; H93.19 Tinnitus, unspecified ear; F32.A Depression, unspecified; G47.30 Sleep apnea, unspecified; R26.9 Unspecified abnormalities of gait and mobility; I10 Essential (primary) hypertension; I48.91 Unspecified atrial fibrillation; K21.9 Gastro-esophageal reflux disease without esophagitis; K52.9 Noninfective gastroenteritis and colitis, unspecified; Z79.82 Long term (current) use of aspirin; Z79.899 Other long term (current) drug therapy; Z80.42 Family history of malignant neoplasm of prostate; Z82.3 Family history of stroke; Z82.49 Family history of ischemic heart disease and other diseases of the circulatory system; Z85.3 Personal history of malignant neoplasm of breast; Z85.828 Personal history of other malignant neoplasm of skin; Z96.611 Presence of right artificial shoulder joint; Z96.641 Presence of right artificial hip joint; Z96.651 Presence of right artificial knee joint; Z98.890 Other specified postprocedural states
CPT/HCPCS: 36415; 74177; 80048; 80053; 81001; 83605; 83690; 83735; 83880; 84100; 84484; 85025; 85027; 85610; 85730; 87077; 87086; 87186; 93005; 96361; 96365; 96366; 99285